=== PATIENT | female | born 1985 ===

== ENCOUNTER 2021-12-26 00:49 | Emergency (ER) | payer OTHER ==
--- OUTSIDE RECORDS SUMMARY | 2021-12-26 00:51 | XMS REPORT | Continuity of Care Document ---
:1985 Author Organization [facility] t Address [address] [place] [address] Care Team Providers Name Role Phone Smith Corey Primary Care Physician MONA LABOY Attending Clinician Unavailable Andie HUERTAS Attending Clinician Mona Laboy MD Attending Clinician MONA LABOY Admitting Clinician Unavailable Payers Payer Name Policy Type Policy Number Effective Date Expiration Date Cinda pierce [employer] Photoblog [id number] 2020spring 00:00:00 [place] [id number] 2016 HEALTHCARE 00:00:00 MEDICAID WCI PAID BY [id number] 2019 [facility] EMPLOYER - 00:00:00 [place] [facility] GENERIC[employer] PAID Branch BY EMPLOYER - [id number] 2019-Prese ntWCI Problems Condition Condition Condition Status Onset Resolution Last Treating Co mments Source Name Details Category Date Date Treatment Clinician Date Morbid Morbid Disease Active Univers obesity obesity 4-20 [place] mass index 00 [place] dical of of Branch 40.0-49.9 40.0-49.9 Presence Presence Disease Active Unive rs of 52 mg of 52 mg 4-20 ity of levonorg[place] trel-relea trel-relea 00 Me dical sing sing Branch intrauteri intrauteri ne device ne device (IUD) (IUD) Morbid Morbid Disease Active Univers obesity obesity 4-20 [place] of with body [place] body [place] mass index mass index 00 Me dical of of Branch 40.0-49.9 40.0-49.9 History of History of Disease Active 2012-07 U jana herpes herpes 2-15 [place]y of genital[place]is [place] 00 [facility] Branch Bipolar I Bipolar I Disease Active 2012-07 Uni vers disorder disorder 2-12 ity of 00:00: [place] [facility] Branch 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 ICD10 Diagnosis Term Zyglo Technician Utility Rubella Rubella Disease Active 2012-07 Univers immune immune 2-12 ity of 00:00: [facility] Tubal Tubal Disease Resolve 2020-11-17 2020-11-17 Univers ligation ligation d 3-11 00:00:00 14:18:11 it y of status status 00:00: [facility] Pre-operat Pre-operat Disease Resolve 2020-11-17 2020-11-17 Univers millicent millicent d 2-22 00:00:00 14:18:10 ity of evaluation evaluation 00:00[place] for [place] for tubal 00 [facility] ligation ligation Branch Obesity, Obesity, Disease Resolve 2019-072020-11-17 2020-11-17 Univers unspecifie unspecifie d 1-04 00:00:00 14:18:13 ity of d d 00:00: [facility] Liveborn Liveborn Disease Resolve 2020-10-26 2020-10-27 Univers infant, of , of d 2-22 00:00:00 03:54:25 ity of arteaga arteaga 00:00: Jeffrey trinidad , , 00 Me dical born in born in [facility] by vaginal by vaginal delivery delivery 40 weeks 40 weeks Disease Resolve 2020-10-07 2020-10-07 Univers gestation gestation d 2-22 00:00:00 19:52:36 ity of of of 00:00: [place] 00 [facility] Supervisio Supervisio Disease Resolve 2020-10-07 2020-10-07 Univers n of high n of high d 7-14 00:00:00 19:52:44 ity of risk risk 00:00: [place] 00 [facility] in third in third Branch trimester trimester Tobacco Tobacco Disease Resolve 2012-072020-10-07 2020-10-07 Univers use use d 2-11 00:00:00 19:52:55 ity of disorder disorder 00:00: [place] 00 [facility] Round Round Disease Resolve 2019-072020-09-21 2020-09-21 Univers ligament ligament d 2-08 00:00:00 13:27:56 it y of pain pain 00:00: [place] 00 [facility] Low lying Low lying Disease Resolve 2019-072020-09-21 2020-09-21 Univers placenta, placenta, d 1-04 00:00:00 13:27:43 ity of antepartum antepartum [place] 00 [facility] 38 weeks 38 weeks Disease Resolve 2019-072020-09-21 2020-09-21 Univers gestation gestation d 0-16 00:00:00 13:27:26 ity of of of 00:00: [place] 00 [facility] Obesity Obesity Disease Resolve 2020-09-21 2020-09-21 Univers (BMI (BMI d 7-14 00:00:00 13:27:51 ity of 30-39.9) 30-39.9) 00:00: [place] 00 [facility] Obesity Obesity Disease Resolve 2012-072020-09-21 2020-09-21 Univers d 2-12 00:00:00 13:27:49 ity of 00:00: [place] 00 [facility] Right Right Disease Resolve 2020-02-11 2020-02-11 Univers ankle pain ankle pain d 3-09 00:00:00 10:47:25 ity of 00:00: [place] 00 [facility] Right knee Right knee Disease Resolve 2015-072020-02-112020-012020-02-11 Univers pain pain d 0-25 00:00:00 10:47:26 ity of 00:00: [place] 00 [facility] [place] Vaginal Vaginal Disease Resolve 2012-2013-07-14 2013-07-15 Univers lesion lesion d 2-12 00:00:00 02:03:49 ity of 00:00: [place] 00 Medical Branch Allergies, Adverse Reactions, Alerts Allergy Allergy Status Severity Reaction(s) Onset Inactive Treating Comm ents Source Name Type Date Date Clinician Penicill Propensi Active Anaphylaxis 2009-07 U nivers ins ty to 2-19 ity of adverse 00:00: [place] reaction 00 Medical s Branch PENICILL Drug Active Anaphylaxis 2009-07 Uni vers INS Class 2-19 ity of 00:00: [place] 00 Medical Branch Social History Social Habit Start Date Stop Date Quantity Comments Source History SDNE University o f Alcohol Std Drinks [facility] Branch History SDNE University o f Alcohol Binge [facility] Branch Exposure to Not sure University of SARS-CoV-2 (event) [facility] History of tobacco Cigarette Smoker University of use [facility] Branch History SDNE University o f Alcohol Frequency [facility] Alcohol intake 2021-09-09 2021-09-09 Current drinker Unive rsity of 00:00:00 00:00:00 of alcohol [facility] (finding) Branch Cigarettes smoked 2021-03-10 2021-03-10 Univers ity of current (pack per 00:00:00 00:00:00 [facility] ) - Reported Branch Cigarette 2021-03-10 2021-03-10 University of pack-years 00:00:00 00:00:00 [facility] Tobacco use and 2021-03-10 2021-03-10 Never used Universit y of exposure 00:00:00 00:00:00 [facility] Alcohol Comment 2021-03-10 2021-03-10 Socially Universit y of 00:00:00 00:00:00 [facility] History SDOH 2020-09-21 2020-09-21 4 University o f Financial 00:00:00 00:00:00 [facility] Education 2020-09-21 2020-09-21 10 University of 00:00:00 00:00:00 [facility] Sex Ass[birth year] At [birth year] Universit y of 00:00:00 00:00:00 [facility] Smoking Status Start Date Stop Date Source Current every day 2021-03-10 00:[facility] Former smoker 2020-11-17 00:00:00 2020-11-17 00:00:00 [facility] Medications Ordered Filled Start Stop Current Ordering Indication Dosage Frequency Signature Comments Components Source Medication Medication Date Date Medication? Clinician (SIG) Name Name SERTraline Yes [id number] 50mg Take 1 U nivers (ZOLOFT) 50 3-10 tablet by ity of mg tablet 00:00: mouth [place] 00 daily. Medical Branch SERTraline Yes [id number] 50mg Take 1 U nivers (ZOLOFT) 50 3-10 tablet by ity of mg tablet 00:00: mouth [place] 00 daily. Medical Branch SERTraline Yes [id number] 50mg Take 1 U nivers (ZOLOFT) 50 3-10 tablet by ity of mg tablet 00:00: mouth [place] 00 daily. [facility] Branch SERTraline Yes [id number] 50mg Take 1 U nivers (ZOLOFT) 50 3-10 tablet by ity of mg tablet 00:00: mouth [place] 00 daily. [facility] Branch SERTraline 2021- No [id number] 50mg Take 1 Univers (ZOLOFT) 50 2-10 03-10 tablet by it y of mg tablet 00:00: 00:00 mouth [place] 00 :00 daily. [facility] Branch SERTraline 2021- No [id number] 50mg Take 1 Univers (ZOLOFT) 50 2-10 03-10 tablet by it y of mg tablet 00:00: 00:00 mouth [place] 00 :00 daily. Medical Branch norgestimat 2020-07 Yes [id number] 1{tbl} Take 1 Univers e-ethinyl 2-01 tablet by ity o f estradioL 00:00: mouth [place] 0.25-35 00 daily. Medical mg-mcg per Branch tablet norgestimat 2020-07 Yes [id number] 1{tbl} Take 1 Univers e-ethinyl 2-01 tablet by ity o f estradioL 00:00: mouth [place] 0.25-35 00 daily. Medical mg-mcg per Branch tablet norgestimat 2020-07 Yes [id number] 1{tbl} Take 1 Univers e-ethinyl 2-01 tablet by ity o f estradioL 00:00: mouth [place] 0.25-35 00 daily. Medical mg-mcg per Branch tablet norgestimat 2020-07 Yes [id number] 1{tbl} Take 1 Univers e-ethinyl 2-01 tablet by ity o f estradioL 00:00: mouth [place] 0.25-35 00 daily. Medical mg-mcg per Branch tablet SERTraline 2020-07- No [id number] 25mg Take 1 Univers (ZOLOFT) 25 1-18 03-10 tablet by it y of mg tablet 00:00: 00:00 mouth [place] 00 :00 daily. [facility] SERTraline 2020-07- No [id number] 25mg Take 1 Univers (ZOLOFT) 25 1-18 03-10 tablet by it y of mg tablet 00:00: 00:00 mouth [place] 00 :00 daily. [facility] SERTraline Yes Bipolar I 25mg Take 1 Univers (ZOLOFT) 25 3-23 disorder tablet by ity of mg tablet 00:00: mouth [place] 00 daily. [facility] Yes Liveborn 1{tbl} Take 1 U nivers vitamin 2-23 , of tablet by i ty of w/FA tablet 00:00: arteaga mouth [place] 00 , daily. Medical born in [facility] by vaginal delivery Immunizations Ordered Filled Immunization Date Status Comments [facility] e Immunization Name Name TD 2020-08-04 Completed University of 00:00:00 [facility] TDAP 2020-08-04 Completed University of 00:00:00 [facility] TDAP 2020-08-04 Completed University of 00:00:00 [facility] TDAP 2020-08-04 Completed University of 00:00:00 [facility] TDAP 2020-08-04 Completed University of 00:00:00 [facility] TDAP 2012-02-17 Completed University of 00:00:00 [facility] TDAP 2012-02-17 Completed University of 00:00:00 [facility] TDAP 2012-02-17 Completed University of 00:00:00 [facility] TDAP 2012-02-17 Completed University of 00:00:00 [facility] TDAP 2012-02-17 Completed University of 00:00:00 [facility] Rubella 2007-04-03 Completed University of 00:00:00 [facility] Rubella 2007-04-03 Completed University of 00:00:00 [facility] Rubella 2007-04-03 Completed University of 00:00:00 [facility] Rubella 2007-04-03 Completed University of 00:00:00 [facility] Rubella 2007-04-03 Completed University of 00:00:00 [facility] Vital Signs Vital Name Observation Time Observation Value Comments Source Systolic blood 2021-10-07 21:32:00 107 mm[Hg] Univer sity of pressure [facility] Diastolic blood 2021-10-07 21:32:00 71 mm[Hg] [facility] 2021-10-07 21:32:00 58 /min [facility] Body temperature 2021-10-07 21:32:00 36.72 [place] [facility] Respiratory rate 2021-10-07 21:32:00 18 /min [facility] Body height 2021-10-07 21:32:00 154.9 cm [facility] Body weight 2021-10-07 21:32:00 102.513 kg [facility] BMI 2021-10-07 21:32:00 42.70 kg/m2 [facility] Procedures Procedure Date / Time Performing Clinician Source Performed US PELVIS COMPLETE WITH 2021-10-20 22:05:11 Allen Laboy [facility] TRANSVAGINAL [facility] Plan of Care Planned Activity Planned Date Details Comments Source Future Scheduled 2030-08-04 DTaP,Tdap,and Td Univers [facility] Test 00:00:00 Vaccines (3 - Td) Medical Br anch [code = DTaP,Tdap,and Td Vaccines (3 - Td)] Future Scheduled 2025-02-09 [facility] 00:[facility]:00 malignant neoplasm Medical B ranch of cervix (procedure) [code = 914371456] Future Scheduled 2021-03-31 INFLUENZA VACCINE [facility] Test 00:00:00 (Season Ended) [code Medical Branch = INFLUENZA VACCINE (Season Ended)] Future Scheduled 2003 SARS-CoV-2 [facility] Test 00:00:00 (COVID-19) Vaccine Medical B thor (1) [code = SARS-CoV-2 (COVID-19) Vaccine (1)] Future Scheduled 1999 Depression screening [facility] Test 00:00:00 (procedure) [code = Medical Branch [id number]] Encounters Start End Encounter Admission Attending Care Care Encounter Source Date/Time Date/Time Type Type Clinicians Facility Department ID 2022-01-24 2022-01-24 Outpatient ALLEN PALMA [facility] [id number] Univers 08:30:00 08:30:00 [id number] ity [facility] 2022-01-24 2022-01-24 Outpatient ALLEN PALMA [facility] [id number] Univers 08:30:00 08:30:00 ity [facility] 2021-12-07 2021-12-07 Outpatient ALLEN PALMA [facility] [id number] Univers 15:00:00 15:00:00 ity [facility] 2021-10-21 2021-10-21 Telephone Andie [facility] [id number] Univers 00:00:00 00:00:00 Cherelle FELDMAN [id number] [facility] [id number] [facility] [id number] Hi dical NAL [address] [facility] 2021-10-20 2021-10-20 Outpatient ALLEN PALMA [facility] [id number] Univers 16:07:09 23:59:00 ity [facility] 2021-10-20 2021-10-20 [facility] Jorge Luis [facility] [id number] Univers 16:07:09 23:59:00 Encounter [id number] [id number] [facility] [id number] [facility] [address] [place] 2021-10-20 2021-10-20 Outpatient Niru LABOY [facility] [id number] Univers 00:00:00 00:00:00 [id number] ity [facility] 2021-10-07 2021-10-07 Office Cherelle Chaves [facility] [id number] Univers 15:30:00 16:05:07 Visit Allen Laboy [id number] ity [facility] [id number] Jeffrey trinidad PROFESSIO [id number] Hi dical [facility] [address] [facility] 2021-10-07 2021-10-07 Outpatient R ALLEN LABOY [facility] [id number] [facility] 15:30:00 16:05:07 ity [facility] Results This patient has no known results.
--- NOTE | 2021-12-26 05:42 | ER ---
Nurse's Notes [facility] Name: Jenae Pelletier Age: 36 yrs Sex: Female : 1985 Arrival Date: 12/26/2021 Time: 00:52 Bed 11 Private MD: Diagnosis: Contusion of right foot Presentation: 12/26 01:00 Chief complaint: Patient states: she falls a lot from her muscular dystrophy and she bb tripped and fell tonight injuring her right ankle which is very painful and swollen. Coronavirus screen: At this time, the client does not indicate any symptoms associated with coronavirus-19. Ebola Screen: No symptoms or risks identified at this time. Initial Sepsis Screen: Does the patient meet any 2 criteria? No. Patient's initial sepsis screen is negative. Does the patient have a suspected source of infection? No. Patient's initial sepsis screen is negative. Risk Assessment: Do you want to hurt yourself or someone else? Patient reports no desire to harm self or others. Onset of symptoms was December 26, 2021. 01:00 Method Of Arrival: Wheelchair bb 01:00 Acuity: JIM 4 bb NURSE ANESTHETIST: 01:01 LMP 12/19/2021 bb Historical: - Allergies: 01:01 PENICILLINS; bb 01:01 amoxicillin; bb - Home Meds: 01:01 BCP [Active]; Zoloft Oral [Active]; bb - PMHx: 01:01 Muscular Dystrophy "CMT"; bb - PSHx: 01:01 Back surgery; bb - Social history:: Smoking status: Reported history of juuling and/or vaping. - Family history:: not pertinent. - Hospitalizations: : No recent hospitalization is reported. Screenin:17 Abuse screen: Denies threats or abuse. Nutritional screening: No deficits noted. fu Tuberculosis screening: No symptoms or risk factors identified. Fall Risk None identified. Assessment: 01:13 General: Appears in no apparent distress. Behavior is calm, cooperative, appropriate fu for age. Pain: Complains of pain in right ankle Pain currently is 10 out of 10 on a pain scale. Pain began 2 hours ago. Aggravated by movement. Neuro: Level of Consciousness is awake, alert, obeys commands, Oriented to person, place, time, situation, Speech is normal, Facial symmetry appears normal. Respiratory: Respiratory effort is even, unlabored, Respiratory pattern is regular. Musculoskeletal: Range of motion: limited in right ankle Swelling present in left ankle and foot. 02:00 Reassessment: No changes from previously documented assessment. Patient is alert, fu oriented x 3, equal unlabored respirations, skin warm/dry/pink. 03:00 Reassessment: Patient is alert, oriented x 3, equal unlabored respirations, skin fu warm/dry/pink. 04:14 Reassessment: Dr. Kidd in the patient's room. fu 05:11 Reassessment: Patient and/or family updated on plan of care and expected duration. Pain fu level reassessed. Patient is alert, oriented x 3, equal unlabored respirations, skin warm/dry/pink. Vital Signs: 01:00 BP 109 / 72; Pulse 101; Resp 16 S; Temp 98.3(O); Pulse Ox 97% on R/A; Weight 99.79 kg bb (R); Height 5 ft. 1 in. (154.94 cm) (R); Pain 10/10; 02:30 BP 95 / 56; Pulse 96; Resp 18; Pulse Ox 95% ; fu 03:00 BP 105 / 63; Pulse 76; Resp 19; Pulse Ox 98% ; fu 03:30 BP 99 / 64; Pulse 97; Resp 17; Pulse Ox 96% on R/A; fu 01:00 Body Mass Index 41.57 (99.79 kg, 154.94 cm) ED Course: 00:52 Patient arrived in ED. bp1 00:55 Virgil Kidd MD is Attending Physician. rn 01:01 Triage completed. bb 01:01 Arm band placed on Patient placed in an exam room, in a wheelchair, on pulse oximetry. bb Family accompanied patient. 01:10 Vahe Wade, RN is Primary Nurse. fu 01:18 Pulse ox on. NIBP on. fu 02:00 Patient has correct armband on for positive identification. Call light in reach. fu 04:58 XRAY Foot RIGHT 3 View In Process Unspecified. EDMS 04:58 XRAY Ankle RIGHT 3 view In Process Unspecified. EDMS 06:10 No provider procedures requiring assistance completed. Patient did not have IV access fu during this emergency room visit. 06:10 ortho boot applied to right foot. fu Administered Medications: No medications were administered Medication: 02:00 VIS not applicable for this client. fu Outcome: 05:41 Discharge ordered by . rn 06:11 Discharged to home via wheelchair, with family. fu 06:11 Condition: stable 06:11 Discharge instructions given to patient, Instructed on discharge instructions, follow up and referral plans. Demonstrated understanding of instructions, follow-up care, Prescriptions given X 0 06:13 Patient left the ED. fu Signatures: Dispatcher [employer] EDAleyda Vargas RN Virgil Huizar MD MD rn Umadhay, Felix, RN RN Freida Nieto [facility]
--- NOTE | 2021-12-26 05:42 | EDPHYS ---
Physician Documentation [facility] Name: Jenae Pelletier Age: 36 yrs Sex: Female : 1985 Arrival Date: 12/26/2021 Time: 00:52 Bed 11 Private MD: ED Physician Virgil Kidd HPI: 12/26 02:57 This 36 yrs old Female presents to ER via Wheelchair with complaints of Foot Injury, rn Fall Injury. 02:57 The patient presents with an injury, pain, swelling. The complaints affect the right rn foot. Onset: The symptoms/episode began/occurred just prior to arrival. Modifying factors: The symptoms are alleviated by nothing, the symptoms are aggravated by movement. Severity of symptoms: At their worst the symptoms were moderate, in the emergency department the symptoms are unchanged. The patient has experienced similar episodes in the past. The patient has not recently seen a physician. Pt reports falls often, fell tonight, struck right foot on concrete. Reports having a lot of pain. Also hit knees and left foot but those aren't hurting per patient. Reports here only for right foot pain.. 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 - Family history:: not pertinent. - Hospitalizations: : No recent hospitalization is reported. ROS: 02:57 Constitutional: Negative for fever, chills, and weight loss, MS/Extremity: + right foot rn injury and pain Skin: + abrasion to top of right foot Exam: 02:57 Constitutional: This is a well developed, well nourished patient who is awake, alert, rn and in no acute distress. MS/ Extremity: Pulses equal, no cyanosis. Superficial abrasion right dorsum of foot. + mild swelling of midfoot and medial malleolus. No gross deformity. Vital Signs: 01:00 BP 109 / 72; Pulse 101; Resp 16 S; Temp 98.3(O); Pulse Ox 97% on R/A; Weight 99.79 kg bb (R); Height 5 ft. 1 in. (154.94 cm) (R); Pain 10/10; 02:30 BP 95 / 56; Pulse 96; Resp 18; Pulse Ox 95% ; fu 03:00 BP 105 / 63; Pulse 76; Resp 19; Pulse Ox 98% ; fu 03:30 BP 99 / 64; Pulse 97; Resp 17; Pulse Ox 96% on R/A; fu 01:00 Body Mass Index 41.57 (99.79 kg, 154.94 cm) bb MDM: 00:55 Patient medically screened. rn 04:15 ED course: delay due to radiology, xray machine down. rn 05:40 Differential diagnosis: fracture, sprain. Data reviewed: vital signs, nurses notes, and rn as a result, I will discharge patient. Counseling: I had a detailed discussion with the patient and/or guardian regarding: the historical points, exam findings, and any diagnostic results supporting the discharge/admit diagnosis, the need for outpatient follow up, to return to the emergency department if symptoms worsen or persist or if there are any questions or concerns that arise at home. ED course: Pt states tired of waiting, would like to go home and be called with results. I do not blame her, has been waiting 5 hours on radiology, xray machine down and no reads. Will have dayshift call and f/u imaging.. 12/26 01:01 Order name: XRAY Foot RIGHT 3 View rn 12/26 01:01 Order name: XRAY Ankle RIGHT 3 view rn 12/26 05:51 Order name: Splint: walking boot; Complete Time: 06:13 rn Administered Medications: No medications were administered Disposition Summary: 12/26/21 05:41 Discharge Ordered Location: Home rn Problem: new rn Symptoms: have improved rn Condition: Stable rn Diagnosis - Contusion of right foot rn Followup: rn - With: Private Physician - When: As needed - Reason: Recheck today's complaints, Re-evaluation by your physician Discharge Instructions: - Discharge Summary Sheet rn - Foot Contusion rn Forms: - Medication Reconciliation Form rn - Thank You Letter rn - Antibiotic international logistics coordinator - Prescription Opioid Use rn Signatures: Dispatcher [employer] EDAleyda Vargas RN RN Virgil Landeros MD MD furnace brazer: (The following items were deleted from the chart) 03:00 02:57 Constitutional: This is a well developed, well nourished patient who is awake, rn alert, and in no acute distress. MS/ Extremity: Pulses equal, no cyanosis. Superficial abrasion right dorsum of foot. rn
[2021-12-26 06:28] VITALS: TEMP 98.3
[2021-12-26 06:32] VITALS: BP 99/64; O2SAT 96
--- NOTE | 2021-12-27 16:24 | RAD REPORT ---
EXAM DESCRIPTION: X Ray Foot Right 3 View (accession [id number]), 3 views; Ankle Right 3 View (ac cession [id number]); 3 views CLINICAL HISTORY: 36 years Female, Pain COMPARISON: None. FINDINGS/IMPRESSION: 1. Lateral ankle soft tissue swelling without acute fracture or dislocation. 2. Chronic appearing corticated ossification adjacent to the medial malleolus probably sequela of nat or injury. 3. No acute fracture of the foot. Electronically signed by: Papito Welsh MD 12/26/2021 6:29 AM CDT Due to temporary technical issues with the PACS/Fluency reporting system, reports are being signed by the in house radiologists without review as a courtesy to insure prompt reporting. The interpreting radiologist is fully responsible for the content of the report.
--- NOTE | 2021-12-27 16:26 | RAD REPORT ---
EXAM DESCRIPTION: X Ray Foot Right 3 View (accession [id number]), 3 views; Ankle Right 3 View (ac cession [id number]); 3 views CLINICAL HISTORY: 36 years Female, Pain COMPARISON: None. FINDINGS/IMPRESSION: 1. Lateral ankle soft tissue swelling without acute fracture or dislocation. 2. Chronic appearing corticated ossification adjacent to the medial malleolus probably sequela of nat or injury. 3. No acute fracture of the foot. Electronically signed by: Papito Welsh MD 12/26/2021 6:29 AM CDT Due to temporary technical issues with the PACS/Fluency reporting system, reports are being signed by the in house radiologists without review as a courtesy to insure prompt reporting. The interpreting radiologist is fully responsible for the content of the report.
== END 2021-12-26 06:13 | disposition home or self-care (01) ==
LOC: ER 00:49
DX: S90.31XA Contusion of right foot, initial encounter (principal); W01.0XXA Fall on same level from slipping, tripping and stumbling without subsequent striking against object, initial encounter; Y93.9 Activity, unspecified; Y92.9 Unspecified place or not applicable; Z88.0 Allergy status to penicillin; F17.290 Nicotine dependence, other tobacco product, uncomplicated
CPT/HCPCS: 99284